=== PATIENT | male | born 1940 | race Caucasian/White ===

== ENCOUNTER → 2016-06-23 | Outpatient (CLI) | payer MEDICARE, OTHER | END | disposition home or self-care (01) | LOC: LABWHC1 09:36 | PROVIDERS: ATTEND Psychiatry & Neurology Neurology | DX: G40.209 Localization-related (focal) (partial) symptomatic epilepsy and epileptic syndromes with complex partial seizures, not intractable, without status epilepticus (principal) | CPT/HCPCS: 36415; 80164; 80185 ==

== ENCOUNTER → 2017-07-17 | Outpatient (CLI) | payer MEDICARE, OTHER | END | disposition home or self-care (01) | LOC: LABWHC1 13:16 | PROVIDERS: ATTEND Psychiatry & Neurology Neurology | DX: G40.209 Localization-related (focal) (partial) symptomatic epilepsy and epileptic syndromes with complex partial seizures, not intractable, without status epilepticus (principal) | CPT/HCPCS: 36415; 80185 ==

== ENCOUNTER 2018-12-29 10:28 | Emergency (ER) | payer MEDICARE, OTHER ==
[2018-12-29 10:40] VITALS: TEMP 97.8
[2018-12-29] MEDS ORDERED: LIDOCAINE 1% INJ 10MG/ML (20 ML MDV) SQ ONE (10:59)
[2018-12-29] MEDS ORDERED: DIPH,PERTUS(ACELL)TETVAC-LF 0.5 ML VIAL IM ONE (10:59)
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
--- NOTE | 2018-12-29 12:11 | CT ---
EXAMINATION TYPE: CT brain lee umaña DATE OF EXAM: 12/29/2018 COMPARISON: Previous CT scan of the brain dated 07/29/2015. HISTORY: Fall today with Left frontal laceration CT DLP: 1024.1 mGycm Automated exposure control for dose reduction was used. TECHNIQUE: CT scan of the head and cervical spine are performed without contrast. FINDINGS: BRAIN: There are generalized changes of sulcal prominence and ventriculomegaly, compatible with atrop hic change. There is diffuse periventricular white matter lucency, compatible with chronic white agusto er ischemic change. There is evidence of an old left parietal infarct. There is no acute focal lesion , mass effect or midline shift identified. I do not see evidence of intracranial blood. Visualized portions of the paranasal sinuses and mastoids are clear. The bony calvarium is intact. IMPRESSION: 1. NO ACUTE INTRACRANIAL ABNORMALITY. 2. DEGENERATIVE CHANGE. 3. 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 CERVICAL SPINE: There is some dependent atelectasis within the dependent portion of the lungs. Prevertebral soft tissues appear normal. Vertebral body height and alignment are maintained. Atlantoaxial relationships are normal. There are bridging osteophytes present anteriorly at C4-5, C5-6 and C6-7 and also present posteriorly at C4-5 and C5-6. There is mild, diffuse uncovertebral joint disease. There is facet arthropathy mj aterally, greater on the right than the left at C2-C3 and C3-4 and bilaterally at C4-5 and C5-6. Ther e is left-sided intervertebral foraminal narrowing at C5-6 and to a lesser extent C4-5. No fractures are identified. IMPRESSION: 1. NO ACUTE OSSEOUS LESION. 2. MODERATE DEGENERATIVE CHANGE.
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
[2018-12-29 13:28] VITALS: BP 107/56; PULSE 74; RESP 18
== END 2018-12-29 13:25 | disposition home or self-care (01) ==
LOC: EC 10:28
DX: S01.81XA Laceration without foreign body of other part of head, initial encounter (principal); S01.21XA Laceration without foreign body of nose, initial encounter; S51.012A Laceration without foreign body of left elbow, initial encounter; M47.812 Spondylosis without myelopathy or radiculopathy, cervical region; J34.2 Deviated nasal septum; G40.909 Epilepsy, unspecified, not intractable, without status epilepticus; H91.90 Unspecified hearing loss, unspecified ear; Z91.048 Other nonmedicinal substance allergy status; Z79.899 Other long term (current) drug therapy; Z86.73 Personal history of transient ischemic attack (TIA), and cerebral infarction without residual deficits; Z87.828 Personal history of other (healed) physical injury and trauma; Z23 Encounter for immunization; W01.0XXA Fall on same level from slipping, tripping and stumbling without subsequent striking against object, initial encounter; Y93.89 Activity, other specified; Y92.512 Supermarket, store or market as the place of occurrence of the external cause
CPT/HCPCS: 72125; 70486; 70450; 90715; 99283; 12013; 90471; J2001

== ENCOUNTER → 2020-06-03 | Outpatient (CLI) | payer MEDICARE, OTHER ==
--- NOTE | 2020-06-03 15:03 | US ---
EXAMINATION TYPE: US bladder DATE OF EXAM: 06/03/2020 COMPARISON: NONE CLINICAL HISTORY: 80 year-old male R35.0 FREQUENCY OF MICTURITION. TECHNIQUE: Multiple sonographic images of the bladder are obtained. FINDINGS: The bladder is initially partially distended showing no gross abnormality. There is a small amount of post void residual volume in the bladder. Post Void Residual Volume: 4.2ml mL Normal Post Void Residual (less than 50ml): Yes Color Doppler performed to assess ureteral jets. Bilateral Jets seen: Yes IMPRESSION: Small amount of residual post void bladder volume of 4 mL falls within acceptable limits.
== END | disposition home or self-care (01) ==
LOC: RADUSWWP 12:59
PROVIDERS: ATTEND Family Medicine
DX: R35.0 Frequency of micturition (principal)
CPT/HCPCS: 76857

== ENCOUNTER 2021-01-09 07:10 | Emergency (ER) | payer MEDICARE, OTHER ==
[2021-01-09 07:16] VITALS: RESP 18; TEMP 98.1
[2021-01-09] MEDS ORDERED: TOPICAL SKIN ADHESIVE 1 EACH AMP TOPICAL ONE (07:24)
--- NOTE | 2021-01-09 07:44 | ED ---
General Adult HPI - General Chief complaint: Fall Stated complaint: Fall,Head Injury Time Seen by Provider: 01/09/21 07:14 Source: patient, RN notes reviewed, old records reviewed Mode of arrival: ambulatory - History of Present Illness Initial comments: 80-year-old male presents status post fall. Patient was leaning from the toilet and fell striking the right side of his forehead just above his eye. This occurred just prior to arrival. No loss consciousness. No chest pain or palpitations. Patient states that he struck his head on the bathtub. He is on 81 mg of aspirin daily. He has no other pain complaints or issues today. Tetanus was 2 years ago. - Related Data Home Medications Medication Instructions Recorded Confirmed Phenytoin Sodium Extended 400 mg PO HS 12/01/13 12/29/18 [Dilantin] Cholecalciferol [Vitamin D3 (25 1,000 unit PO DAILY 07/11/15 12/29/18 Mcg = 1000 Iu)] Omeprazole 20 mg PO DAILY 12/29/18 12/29/18 Previous Rx's Medication Instructions Recorded Lisinopril-Hctz 10-12.5 mg 1 tab PO DAILY #30 tab 07/13/15 [Zestoretic 10-12.5] Atorvastatin [Lipitor] 80 mg PO HS tab 08/03/15 Aspirin 81 mg PO DAILY #30 chewable 12/19/15 Allergies Allergy/AdvReac Type Severity Reaction Status Date / Time adhesive Allergy Rash/Hives Verified 01/09/21 07:16 Review of Systems ROS Statement: Those systems with pertinent positive or pertinent negative responses have been documented in the HPI. ROS Other: All systems not noted in ROS Statement are negative. Past Medical History Past Medical History: CVA/TIA, Hearing Disorder / Deafness, Hyperlipidemia, Hypertension, Seizure Disorder Additional Past Medical History / Comment(s): Patient states "last seizure was in Jul 2015 after surgery",TIA History of Any Multi-Drug Resistant Organisms: None Reported Past Surgical History: Orthopedic Surgery Additional Past Surgical History / Comment(s): Right knee surgery, bilateral shoulder surgery, carpal tunnel surgery bilaterally, carotid artery "cleaned it out" Past Anesthesia/Blood Transfusion Reactions: No Reported Reaction Past Psychological History: No Psychological Hx Reported Smoking Status: Never smoker Past Alcohol Use History: None Reported Past Drug Use History: None Reported - Past Family History Mother Family Medical History: Myocardial Infarction ([place]) Father Family Medical History: Cancer General Exam General appearance: alert, in no apparent distress Head exam: Present: normocephalic, other (Hematoma above the right eye with a 2 cm partial thickness laceration) Eye exam: Present: normal appearance, PERRL, periorbital swelling, periorbital tenderness Neck exam: Present: normal inspection. Absent: tenderness, meningismus Respiratory exam: Present: normal lung sounds bilaterally. Absent: respiratory distress, wheezes Cardiovascular Exam: Present: regular rate, normal rhythm GI/Abdominal exam: Present: soft. Absent: distended, tenderness, guarding Extremities exam: Present: normal inspection, normal capillary refill. Absent: pedal edema Neurological exam: Present: alert, oriented X3, CN II-XII intact. Absent: motor sensory deficit Psychiatric exam: Present: normal affect, normal mood Skin exam: Present: warm, dry, intact. Absent: cyanosis, diaphoretic Course Vital Signs 01/09/21 07:11 Temperature 98.1 F Pulse Rate 89 Respiratory 18 Rate Blood Pressure 132/73 O2 Sat by Pulse 94 L Oximetry Medical Decision Making - Medical Decision Making 80-year-old male status post fall with laceration above the right eye. Head CT is performed which is negative for intracranial hemorrhage or mass effect, old infarction with encephalomalacia. CT cervical spine negative for fracture or subluxation. Patient does have a repair with skin adhesive., And pressure dressing for hematoma. Return parameters discussed. Will follow with primary care physician. Disposition Clinical Impression: Fall, Concussion, Forehead laceration Disposition: HOME SELF-CARE Condition: Fair Instructions (If sedation given, give patient instructions): Concussion (ED), Skin Adhesive Care (ED), Facial Laceration (ED), Hematoma (ED) Is patient prescribed a controlled substance at d/c from ED?: No Referrals: Geronimo Kothari DO [Primary Care Provider] - 1-2 days Time of Disposition: 09:14
--- NOTE | 2021-01-09 09:11 | CT ---
EXAMINATION TYPE: CT brain lee umaña DATE OF EXAM: 01/09/2021 COMPARISON: 12/30/2018 HISTORY: fall off of toilet, right eye contusion CT DLP: 1117.2 mGycm, Automated exposure control for dose reduction was used. CONTRAST: Patient injected with 0 mL of Isovue 300. CT of the brain is performed utilizing 3 mm thick sections through the posterior fossa and 3 mm thick sections through the remaining calvarium. Study is performed within 24 hours of arrival to the hospital. No abnormal hyperdensity is present to suggest an acute intracranial hemorrhage. No mass lesion is evident. There is some calcification along the anterior falx. No acute infarcts are evident. Left frontal lobe hypodensity is present, old subcortical infarct. Ventricles and sulci are prominent for the patient age. Paranasal sinuses and mastoid air cells within the [id number] are clear. There is superficial soft tissue swelling over the right periorbital region. No underlying fracture i s evident. IMPRESSIONS: 1. Atrophy with old left subcortical infarct left frontal lobe. 2. Soft tissue swelling right periorbital region. No underlying fracture is evident. CT cervical spine. COMPARISON: None CT of the cervical spine is performed in the axial plane at 2 mm thick sections. Reconstructed image s in the coronal, and sagittal plane are reviewed on the computer. No acute fractures are evident. Vertebral body alignment is normal. There is diffuse degenerative disc change through the cervical spine. Some calcification within the d isc spaces there are narrowed is present at the before meals 4 5 C5-6 and C6-7 levels. Posterior long itudinal ligament calcification is present at these levels which has mild anterior thecal sac racehal joshua. Large anterior vertebral body spurs are present C4-C6. Posterior spinal lamellar line appears i ntact. Uncovertebral joint hypertrophy is present with multilevel foraminal stenosis Vertebral body heights are preserved. IMPRESSIONS: 1. No acute osseous abnormality. 2. Multilevel degenerative disc change. 3. Uncovertebral joint hypertrophy contributing to severe foraminal stenosis.
[2021-01-09 10:15] VITALS: BP 138/78; PULSE 87
== END 2021-01-09 10:15 | disposition home or self-care (01) ==
LOC: EC 07:10
DX: S06.0X0A Concussion without loss of consciousness, initial encounter (principal); S01.81XA Laceration without foreign body of other part of head, initial encounter; I10 Essential (primary) hypertension; G40.909 Epilepsy, unspecified, not intractable, without status epilepticus; H91.90 Unspecified hearing loss, unspecified ear; Z91.09 Other allergy status, other than to drugs and biological substances; Z79.899 Other long term (current) drug therapy; Z86.73 Personal history of transient ischemic attack (TIA), and cerebral infarction without residual deficits; W01.198A Fall on same level from slipping, tripping and stumbling with subsequent striking against other object, initial encounter; Y92.002 Bathroom of unspecified non-institutional (private) residence as the place of occurrence of the external cause
CPT/HCPCS: 70450; 72125; 99283

== ENCOUNTER 2023-02-04 14:47 | Emergency (ER) | payer MEDICARE, OTHER ==
[2023-02-04 15:08] VITALS: TEMP 98
--- NOTE | 2023-02-04 15:44 | ED ---
Extremity Problem HPI - General Chief complaint: Extremity Problem,Nontraumatic Stated complaint: L arm pain Time Seen by Provider: 02/04/23 15:21 Source: patient, RN notes reviewed Mode of arrival: ambulatory Limitations: no limitations - History of Present Illness Initial comments: Patient is a pleasant 82-year-old male presenting to the emergency room with complaints of pain and swelling that has been ongoing for approximately 4 days and worsening. He reports the pain is most severe when attempting to move his arm upward. He reports the pain is less painful when straightening his left arm out. 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 On exam erythema is noted but he is unsure when this redness began. He denies any other complaints or concerns including any shortness of breath, chest pain, abdominal pain, nausea, vomiting, headache, dizziness, fevers or chills. His past medical history as listed below was reviewed. - Related Data Home Medications Medication Instructions Recorded Confirmed Phenytoin Sodium Extended 400 mg PO HS 12/01/13 12/29/18 [Dilantin] Cholecalciferol [Vitamin D3 (25 1,000 unit PO DAILY 07/11/15 12/29/18 Mcg = 1000 Iu)] Omeprazole 20 mg PO DAILY 12/29/18 12/29/18 Previous Rx's Medication Instructions Recorded Lisinopril-Hctz 10-12.5 mg 1 tab PO DAILY #30 tab 07/13/15 [Zestoretic 10-12.5] Atorvastatin [Lipitor] 80 mg PO HS tab 08/03/15 Aspirin 81 mg PO DAILY #30 chewable 12/19/15 Sulfamethox-Tmp 800-160Mg [Bactrim 1 tab PO Q12HR 7 Days #14 tab 02/04/23 DS 800-160 mg] Allergies Allergy/AdvReac Type Severity Reaction Status Date / Time adhesive Allergy Rash/Hives Verified 02/04/23 15:08 Review of Systems ROS Statement: Those systems with pertinent positive or pertinent negative responses have been documented in the HPI. ROS Other: All systems not noted in ROS Statement are negative. Past Medical History Past Medical History: CVA/TIA, Hearing Disorder / Deafness, Hyperlipidemia, Hypertension, Seizure Disorder Additional Past Medical History / Comment(s): Patient states "last seizure was in Jul 2015 after surgery",TIA History of Any Multi-Drug Resistant Organisms: None Reported Past Surgical History: Orthopedic Surgery Additional Past Surgical History / Comment(s): Right knee surgery, bilateral shoulder surgery, carpal tunnel surgery bilaterally, carotid artery "cleaned it out" Past Anesthesia/Blood Transfusion Reactions: No Reported Reaction Past Psychological History: No Psychological Hx Reported Smoking Status: Never smoker Past Alcohol Use History: None Reported Past Drug Use History: None Reported - Past Family History Mother Family Medical History: Myocardial Infarction (OR) Father Family Medical History: Cancer General Exam Limitations: no limitations General appearance: alert, in no apparent distress Head exam: Present: atraumatic, normocephalic, normal inspection Eye exam: Present: normal appearance, PERRL, EOMI. Absent: scleral icterus, conjunctival injection, periorbital swelling ENT exam: Present: normal exam, mucous membranes moist Neck exam: Present: normal inspection, full ROM Respiratory exam: Absent: respiratory distress, accessory muscle use Cardiovascular Exam: Present: regular rate GI/Abdominal exam: Absent: distended Left Elbow exam: Present: tenderness, swelling (Antecubital region), erythema. Absent: full ROM (limited by pain) Forearm Wrist exam: Present: tenderness, swelling (Antecubital region), erythema Vascular: Absent: vascular compromise Back exam: Present: normal inspection Neurological exam: Present: alert, oriented X3, CN II-XII intact Psychiatric exam: Present: normal affect, normal mood Skin exam: Present: warm, dry, intact, normal color. Absent: rash Course Vital Signs 02/04/23 02/04/23 15:04 15:58 Temperature 98.0 F Pulse Rate 77 68 Respiratory 20 16 Rate Blood Pressure 144/73 100/69 O2 Sat by Pulse 95 98 Oximetry Medical Decision Making - Medical Decision Making NoWas pt. sent in by a medical professional or institution (, PA, MACHINERY ENGINEER, urgent care, hospital, or penitentiary...) When possible be specific @ -No Did you speak to anyone other than the patient for history (EMS, parent, family, police, friend...)? What history was obtained from this source @ -No Did you review nursing and triage notes (agree or disagree)? Why? @ -I reviewed and agree with nursing and triage notes Were old charts reviewed (outside hosp., previous admission, EMS record, old EKG, old radiological studies, urgent care reports/EKG's, penitentiary records)? Report findings @ -No old charts were reviewed Differential Diagnosis (chest pain, altered mental status, abdominal pain women, abdominal pain men, vaginal bleeding, weakness, fever, dyspnea, syncope, headache, dizziness, GI bleed, back pain, seizure, CVA, palpatations, mental health, musculoskeletal)? @ -Differential Musculoskeletal Muscular strain, contusion, ligament sprain, fracture, arthritis, septic arthritis, bursitis, cellulitis, muscle spasm, nerve compression, DVT, arterial occlusion, herpes zoster, electrolyte abnormality, tumor.... This is not meant to be in all inclusive list EKG interpreted by me (3pts min.). @ -None done X-rays interpreted by me (1pt min.). @ -None done CT interpreted by me (1pt min.). @ -None done U/S interpreted by me (1pt. min.). @ -Venous Doppler left upper extremity not interpreted by me report per radiologist no evidence of DVT however there is a complex fluid collection in the and medical pupil area which per radiologist measures 5.3 x 3.4 x 2.1 cm. What testing was considered but not performed or refused? (CT, X-rays, U/S, labs)? Why? @ -None What meds were considered but not given or refused? Why? @ -None Did you discuss the management of the patient with other professionals (professionals i.e. , PA, MACHINERY ENGINEER, lab, RT, psych nurse, social services coordinator, electric needle specialist, teacher, chief environmental commitment officer, case investigator)? Give summary @ -No Was smoking cessation discussed for >3mins.? @ -No Was critical care preformed (if so, how long)? @ -No Were there social determinants of health that impacted care today? How? (Homelessness, low income, unemployed, alcoholism, drug addiction, transportation, low edu. Level, literacy, decrease access to med. care, senior care, rehab)? @ -No Was there de-escalation of care discussed even if they declined (Discuss DNR or withdrawal of care, Hospice)? DNR status @ -No What co-morbidities impacted this encounter? (DM, HTN, Smoking, COPD, CAD, Cancer, CVA, ARF, Chemo, Hep., AIDS, mental health diagnosis, sleep apnea, morbid obesity)? @ -None Was patient admitted / discharged? Hospital course, mention meds given and route, prescriptions, significant lab abnormalities, going to OR and other pertinent info. @ -82-year-old male presenting to the emergency room with complaints of pain and swelling that has been ongoing for approximately 4 days and worsening. He reports the pain is most severe when attempting to move his arm upward. He reports the pain is less painful when straightening his left arm out. No pain without movement denies any analgesic need. No indication for laboratory studies, will obtain venous Doppler of the left upper extremity. Venous Doppler left upper extremity shows no evidence of DVT however there is a complex fluid collection in the and medical pupil area which per radiologist measures 5.3 x 3.4 x 2.1 cm. Due to location and vasculature unable to drain abscess. The complexity of fluid collection will place on Bactrim by mouth with first dose now. Advise close monitoring of worsening infectious symptoms with strict return parameters reviewed with patient and spouse at bedside. Questions and concerns answered. Will discharge home in stable condition on oral antibiotic therapy for cellulitis and abscess of the antecubital region of the left arm advising follow-up with primary care provider. Undiagnosed new problem with uncertain prognosis? @ -No Drug Therapy requiring intensive monitoring for toxicity (Heparin, Nitro, Insulin, Cardizem)? @ -No Were any procedures done? @ -No Diagnosis/symptom? @ -Cellulitis and abscess of the left upper forearm region and antecubital area Acute, or Chronic, or Acute on Chronic? @ -Acute Uncomplicated (without systemic symptoms) or Complicated (systemic symptoms)? @ -Uncomplicated Side effects of treatment? @ -No Exacerbation, Progression, or Severe Exacerbation? @ -No Poses a threat to life or bodily function? How? (Chest pain, [place], OR, pneumonia, PE, COPD, DKA, ARF, appy, cholecystitis, CVA, Diverticulitis, Homicidal, Suicidal, threat to staff... and all critical care pts) @ -No Case discussed with Dr. Lara - Radiology Data Radiology results: report reviewed, image reviewed Disposition Clinical Impression: Cellulitis, Abscess of left forearm Disposition: HOME SELF-CARE Condition: Stable Instructions (If sedation given, give patient instructions): Cellulitis (ED) Additional Instructions: Complete antibiotic course as prescribed. Please follow-up with your primary care provider. Monitor closely for worsening of infectious symptoms and please return to the Emergency Department if symptoms worsen or any other concerns. Prescriptions: Sulfamethox-Tmp 800-160Mg [Bactrim DS 800-160 mg] 1 tab PO Q12HR 7 Days #14 tab Is patient prescribed a controlled substance at d/c from ED?: No Referrals: Geronimo Kothari DO [Primary Care Provider] - 1-2 days Time of Disposition: 16:57
[2023-02-04 15:59] VITALS: RESP 16
--- NOTE | 2023-02-04 16:43 | US ---
EXAMINATION TYPE: US venous doppler duplex UE LT DATE OF EXAM: 02/04/2023 COMPARISON: NONE CLINICAL INDICATION: Male, 82 years old with history of pain swelling; Pain and swelling x 4 days wit hin left arm at elbow area. No hx of DVT. Patient takes baby aspirin daily. SIDE PERFORMED: Left Arm Left Arm: No evidence of DVT. At patient's area of pain and swelling, within the left anterior-medial elbow area/antecubital area, there appears to be a complex area measurin.3 x 3.4 x 2.1 cm. Ulnar veins appear to compress, unable to show color flow probably due to small size. IMPRESSION: 1. No visualized deep venous thrombosis of the left upper extremity. 2. Complex fluid collection within the anteromedial elbow/antecubital region measuring up to 5.3 cm. No hyperemia identified. This could represent a hematoma versus less likely abscess in the appropriat e clinical setting.
[2023-02-04] MEDS ORDERED: SULFAMETHOX-TMP 800-160MG 1 EACH TAB PO STA (16:52)
[2023-02-04 17:05] VITALS: BP 145/89; PULSE 86
== END 2023-02-04 17:16 | disposition home or self-care (01) ==
LOC: EC 14:47
DX: L02.414 Cutaneous abscess of left upper limb (principal); I10 Essential (primary) hypertension; Z91.09 Other allergy status, other than to drugs and biological substances
CPT/HCPCS: 99283

== ENCOUNTER → 2023-02-16 | Outpatient (CLI) | payer MEDICARE ==
--- NOTE | 2023-02-16 12:44 | MR ---
EXAMINATION TYPE: MR forearm LT wo/w con DATE OF EXAM: 02/16/2023 COMPARISON: No radiographic correlation available HISTORY: 43-year-old male R22.32, Swelling in left proximal forearm. Technique: Multiplanar, multisequence images of the left forearm were obtained before and after admin istration of 9 mL intravenous Gadavist gadolinium contrast. The technologist indicates that sequence s were limited as the patient had to prematurely and the examination in order to use the restroom. FINDINGS: Distal biceps tendon rupture with extensive edema and hemorrhage. Irregular hematoma measures up to 7 .4 cm long within the intervening gap and measures up to 2.2 x 1.7 cm wide. The large forearm field o f view limits detailed assessment of this region but we estimate. Retraction by 4.0 - 4.5 cm. The abdiaziz mp remains just distal to the elbow joint line. 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 Reactive edema within the underlying radius and edema within the adjacent supinator muscle as well. There appears to be prominent degenerative change at the wrist joint and carpal bones which can be fu rther evaluated radiographically if indicated. Small joint effusion probably reactive. IMPRESSION: 1. Acute DBT rupture with associated edema and hemorrhage. Irregular hematoma measures 7.4 x 2.2 x 1. 7 cm within the intervening gap. 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 Urgent orthopedic referral advised. 2. The large field of view imaging centered over the forearm limits detailed assessment.
== END | disposition home or self-care (01) ==
LOC: RADMRIMAIN 08:29
PROVIDERS: ATTEND Family Medicine
DX: M66.832 Spontaneous rupture of other tendons, left forearm (principal); R22.32 Localized swelling, mass and lump, left upper limb

== ENCOUNTER 2023-03-29 07:51 | Day surgery (SDC) | payer MEDICARE ==
[~2023-03-29 07:51] MED LIST: DEXAMETHASONE SOD PHOSPHATE 4 MG/ML 1 ML VIAL IV ONE; FAMOTIDINE 20 MG/2 ML VIAL IV PRN; HYDROmorphone 0.5 MG/0.5 ML SYRINGE IVP PRN; LACTATED RINGERS 1,000 ML IV SCH; LIDOCAINE 1% (10MG/ML) FOR IV START INTRADERMA PRN; MIDAZOLAM 2 MG/2 ML VIAL IV PRN; ONDANSETRON 4 MG/2 ML VIAL IVP ONE
[2023-03-29] MEDS ORDERED: PROPOFOL 10 MG/ML 20 ML VIAL IV ONE (08:38)
[2023-03-29] MEDS ORDERED: MIDAZOLAM 2 MG/2 ML VIAL ONE (08:38)
[2023-03-29] MEDS ORDERED: LIDOCAINE 1% INJ 10MG/ML (20 ML MDV) ONE (08:38)
[2023-03-29] MEDS ORDERED: fentaNYL (PF) 50 MCG/ML 2 ML AMP ONE (08:38)
[2023-03-29 08:42] VITALS: TEMP 97.6
[2023-03-29] MEDS ORDERED: LIDOCAINE 1%-EPI 1:100,000 50 ML VIAL SQ ONE ×2 (08:56)
[2023-03-29] MEDS ORDERED: BACITRACIN ZINC 500 UNIT/GM OINT 28.4 GM TUBE TOPICAL ONE (09:24)
--- NOTE | 2023-03-29 09:31 | P.OP ---
Date of Procedure: 03/29/23 Preoperative Diagnosis: Bilateral ear lesions Postoperative Diagnosis: Same Procedure(s) Performed: Excision right ear lesion with local flap reconstruction with primary excision 2.4 x 1.7 cm and local flap reconstruction of 2.4 x 1.7 cm primary defect and 2.8 x 1 cm secondary defect Shave excision left ear lesion 8 mm Anesthesia: MAC Surgeon: Pietro Blake Estimated Blood Loss (ml): 5 Pathology: other (Bilateral ear lesions) Condition: stable Disposition: PACU Indications for Procedure: 83-year-old white male with slowly enlarging right superior ear lesion suspicious for basal cell carcinoma scaling mid left ear lesion Operative Findings: Right superior helical ear lesion nodular 1 x 2 cm approximate, mild white scaling left mid helical lateral lesion Description of Procedure: Patient was brought in the operative suite and placed in a supine position. Patient underwent induction of IV sedation after appropriate monitors were placed by the fingerer. Patient was prepped and draped in usual aseptic fashion. 1% lidocaine with 1 1000 epinephrine was infused subcutaneously around both lesions. This was left to work for 7 minutes vasoconstrictive effect. The left ear lesion was excised a shave excision technique with the perichondrium left intact. Hemostasis was gained with electrocautery. Uncinectomy and hemostasis noted bacitracin ointment and sterile dressing were placed. The right ear lesion was then excised grossly entirely including the underlying cartilage for margin and for reconstructive purposes. Due to the size of the defect a local flap from the posterior aspect of the auricle was developed and rotated and advanced into position. After good hemostasis was noted with electrocautery the flap was created with that cut and rotation of soft tissue was rotated and advanced into position and sutured in the subcutaneous layer with inverted interrupted 5-0 Vicryl suture skin closed with running locking with simple interrupted 5-0 Prolene suture. It was elected not to send frozen section as the patient medical status was marginal and did not want to have him under anesthesia for any further length of time. The lesion was well demarcated also and nodular grossly. Once the defect was closed bacitracin ointment and sterile dressing were placed. The patient was then allowed to emerge from anesthesia and transferred to postop recovery area in satisfactory condition.
[2023-03-29 10:02] VITALS: BP 125/61; PULSE 70; RESP 16
== END 2023-03-29 10:32 | disposition home or self-care (01) ==
LOC: OR 07:51
PROVIDERS: ATTEND Otolaryngology
DX: L81.4 Other melanin hyperpigmentation (principal); H93.8X3 Other specified disorders of ear, bilateral; I73.9 Peripheral vascular disease, unspecified; N42.9 Disorder of prostate, unspecified; G40.909 Epilepsy, unspecified, not intractable, without status epilepticus; Z86.73 Personal history of transient ischemic attack (TIA), and cerebral infarction without residual deficits; Z88.8 Allergy status to other drugs, medicaments and biological substances; Z79.899 Other long term (current) drug therapy; Z79.82 Long term (current) use of aspirin
CPT/HCPCS: 21012; 88305; J2250; J1100; J0690; J2405; J2001; J3010; J3490; J2704